=== PATIENT | female | born 2000 | race Caucasian/White ===

== ENCOUNTER 2018-03-18 15:15 | Day surgery (SDC) | payer MEDICAID ==
[2018-03-18 15:59] LABS: BILIRUBIN,URINE NEGATIVE (NEGATIVE); GLUCOSE, URINE (UA) NEGATIVE (NEGATIVE); KETONES,URINE (UA) NEGATIVE (NEGATIVE); LEUKOCYTE ESTERASE, URINE SMALL (NEGATIVE); NITRITE,URINE NEGATIVE (NEGATIVE); OCCULT BLOOD,URINE NEGATIVE (NEGATIVE); PROTEIN,URINE NEGATIVE (NEGATIVE); UROBILINOGEN,URINE 0.2 (NORMAL) E.U./dL (NORMAL)
[2018-03-18 16:00] LABS: HCG UR QUAL NEGATIVE
[2018-03-18 16:01] LABS: CLARITY,URINE CLEAR (CLEAR)
[2018-03-18 16:14] LABS: BACTERIA,URINE None Seen /HPF (None Seen); RBC,URINE None Seen /HPF (0-5); SQUAMOUS EPITHELIAL CELL,UR FEW Squamous (<= Few)
[2018-03-18] MEDS ORDERED: ONDANSETRON 4 MG/2 ML VIAL IVP STA (16:15)
[2018-03-18] MEDS ORDERED: SODIUM CHLORIDE 0.9% 1,000 ML IV ONE (16:15)
[2018-03-18] MEDS ORDERED: MORPHINE 2 MG/ML CARPUJECT IVP STA (16:15)
--- NOTE | 2018-03-18 16:22 | ED Physician Documentation ---
History of Present Illness - Stated complaint Stated Complaint: FEM /AB PX - Chief complaint Chief Complaint: Abd Pain - Additonal information Additional information: hx from pt 17 y/o female LMP about a m ago exact date not known states abrupt onset severe abd pain last night during intercourse fever chills some vag spotting a few days before that Review of Systems Constitutional: reports: Fever, Chills Cardiac: denies: Chest pain / pressure Respiratory: denies: Dyspnea GI: reports: Abdominal Pain, Nausea, Vomiting. denies: Diarrhea : denies: Now EGA Endocrine: denies: Easy bruising / bleeding Immunocompromised: denies: Immunocompromised PD PAST MEDICAL HISTORY - Allergies Allergies/Adverse Reactions: Allergies Allergy/AdvReac Type Severity Reaction Status Date / Time felodipine [From Plendil] Allergy Unknown Verified 03/18/18 15:35 PD ED PE NORMAL - Vitals Vital signs reviewed: Yes - Cardiac Cardiac: RRR - Respiratory Respiratory: No respiratory distress - Abdomen Abdomen: Other (soft but severe TTP with rebound diffusely) - Female Female : Other (was planning on doing after sono but deferred now that sono shows cause ) - Derm Derm: Normal color Results - Vitals Vitals: Vital Signs - 24 hr 03/18/18 03/18/18 15:30 18:56 Temperature 36.2 C L 36.9 C Heart Rate 68 66 Respiratory 16 16 Rate Blood Pressure 132/71 H 117/71 O2 Saturation 98 97 Oxygen O2 Source Room air - Labs Labs: Laboratory Tests 03/18/18 03/18/18 03/18/18 15:53 15:53 16:07 WBC 8.6 RBC 4.36 Hgb 13.6 Hct 40.0 MCV 91.9 MCH 31.2 H MCHC 33.9 RDW 13.5 Plt Count 260 MPV 10.0 Neut # (Auto) 5.4 Lymph # (Auto) 2.3 [place] # (Auto) 0.7 Eos # (Auto) 0.1 Baso # (Auto) 0.1 Absolute Nucleated RBC 0.00 Nucleated RBC % 0.1 Sodium Potassium Chloride Carbon Dioxide Anion Gap BUN Creatinine Estimated GFR (MDRD) Glucose Calcium Total Bilirubin AST ALT Alkaline Phosphatase Total Protein Albumin Globulin Albumin/Globulin Ratio Lipase HCG, Quant Urine Color YELLOW Urine Clarity CLEAR Urine pH 6.0 Ur Specific Chicken 1.025 1.025 Urine Protein NEGATIVE Urine Glucose (UA) NEGATIVE Urine Ketones NEGATIVE Urine Occult Blood NEGATIVE Urine Nitrite NEGATIVE Urine Bilirubin NEGATIVE Urine Urobilinogen 0.2 (NORMAL) Ur Leukocyte Esterase SMALL H Urine RBC None Seen Urine WBC 4-5 Ur Squamous Epith Cells FEW Squamous Urine Bacteria None Seen Ur Microscopic Review INDICATED Urine Culture Comments INDICATED Urine HCG, Qual NEGATIVE 03/18/18 03/18/18 16:07 16:07 WBC RBC Hgb Hct MCV MCH MCHC RDW Plt Count MPV Neut # (Auto) Lymph # (Auto) [place] # (Auto) Eos # (Auto) Baso # (Auto) Absolute Nucleated RBC Nucleated RBC % Sodium 136 Potassium 3.7 Chloride 101 Carbon Dioxide 25 Anion Gap 10.0 BUN 11 Creatinine 0.7 Estimated GFR (MDRD) 108 Glucose 96 Calcium 9.1 Total Bilirubin 0.9 AST 18 ALT 20 Alkaline Phosphatase 63 Total Protein 8.1 Albumin 4.5 Globulin 3.6 Albumin/Globulin Ratio 1.3 Lipase 23 HCG, Quant < 0.60 Urine Color Urine Clarity Urine pH Ur Specific Chicken Urine Protein Urine Glucose (UA) Urine Ketones Urine Occult Blood Urine Nitrite Urine Bilirubin Urine Urobilinogen Ur Leukocyte Esterase Urine RBC Urine WBC Ur Squamous Epith Cells Urine Bacteria Ur Microscopic Review Urine Culture Comments Urine HCG, Qual - Rads (name of study) pelvic sono Radiology: See rad report (large amt free fluid in the cul de sac with internal debris and a complex thick walled cystic lesion R ovary - c/w ruptured R ovarian cyst with hemorrhaging) abd sono Radiology: See rad report (no acute other than pelvic sono findings) PD MEDICAL DECISION MAKING - ED course ED course: ruptured right ovarian cyst with large amt of free intraperitoneal blood VS WNL H/H OK type and screen called ELECTROTHERAPIST at 1930 - she is on OR and will call back turned over to Dr Lambert at 8 PM pending ELECTROTHERAPIST eval pt remains stable and I have updated her
[2018-03-18 16:33] LABS: BASOPHILS # (AUTO) 0.1 10^3/uL (0.0-0.1); BASOPHILS % (AUTO) 0.6 %; EOSINOPHILS # (AUTO) 0.1 10^3/uL (0.0-0.7); EOSINOPHILS % (AUTO) 0.9 %; HGB - HEMOGLOBIN 13.6 g/dL (12.0-16.0); LYMPHOCYTES # (AUTO) 2.3 10^3/uL (1.5-3.5); LYMPHOCYTES % (AUTO) 27.1 %; MEAN CORPUSCULAR HEMOGLOBIN 31.2 pg (27.0-31.0); MEAN CORPUSCULAR HGB CONC 33.9 g/dL (32.0-36.0); MEAN CORPUSCULAR VOLUME 91.9 fL (81.0-99.0); MONOCYTES # (AUTO) 0.7 10^3/uL (0.0-1.0); MONOCYTES % (AUTO) 8.2 %; NEUTROPHILS # (AUTO) 5.4 10^3/uL (1.5-6.6); NEUTROPHILS % (AUTO) 63.2 %; PLT - PLATELET COUNT 260 10^3/uL (130-450); RED BLOOD COUNT 4.36 10^6/uL (4.20-5.40); RED CELL DISTRIBUTION WIDTH 13.5 % (12.0-15.0); WHITE BLOOD COUNT 8.6 x10^3/uL (4.8-10.8)
[2018-03-18 16:43] LABS: ALBUMIN 4.5 g/dL (3.2-5.5); ALBUMIN/GLOBULIN RATIO 1.3 (1.0-2.2); BILIRUBIN,TOTAL 0.9 mg/dL (0.2-1.0); CALCIUM 9.1 mg/dL (8.5-10.3); CREATININE 0.7 mg/dL (0.4-1.0); TOTAL PROTEIN 8.1 g/dL (6.7-8.2)
--- NOTE | 2018-03-18 20:46 | ED Physician Documentation ---
ED Addendum - Addendum Addendum: 03/18/18 20:45 Dr. Riojas came to the emergency room after she got out of her prior surgery. I discussed the history and presentation with her. We reviewed the chart and she did ask for a repeat hemogram. These are ordered. Dr. Simon will see the patient and plans to take her for laparoscopy to control the bleeding of the ruptured cyst.
--- NOTE | 2018-03-18 20:49 | Ultrasound Report ---
Reason: sudden severe pelvic pain peritoneal abd Procedure Date: 03/18/2018 Accession Number: [id number] / [id number] Procedure: US - Abdomen Complete CPT Code: FULL RESULT: EXAM: ABDOMEN ULTRASOUND EXAM DATE: 03/18/2018 06:33 PM. CLINICAL HISTORY: Sudden severe pelvic pain and peritoneal abdominal pain. COMPARISON: None. TECHNIQUE: Real-time scanning was performed with static images obtained. FINDINGS: Liver: Normal in size and echotexture. 18.5 cm. Main portal vein flow: Hepatopetal. Gallbladder: Normal. No stones, wall thickening, or sonographic Cabrera's sign. Biliary System: Common bile duct measures 4.1 mm. No intrahepatic or extrahepatic ductal dilatation. Pancreas: Visualized portion is unremarkable. Kidneys: Right: 11.6 cm longitudinally. Normal. No contour-deforming mass, stones, or hydronephrosis. Left: 12.2 cm longitudinally. Normal. No contour-deforming mass, stones, or hydronephrosis. Spleen: 11.2 x 4.9 x 4.6 cm. Normal in size and echotexture. Aorta and Inferior Vena Cava: Maximum AP diameter of the aorta is 1.6 cm. Normal course and caliber of the imaged portions of the inferior vena cava. Other: None. IMPRESSION: Normal abdomen ultrasound. RADIA
--- NOTE | 2018-03-18 20:50 | Ultrasound Report ---
Reason: sudden severe pelvic pain peritoneal abd Procedure Date: 03/18/2018 Accession Number: [id number] / [id number] Procedure: US - Pelvic w/Transvag+Doppler Comp CPT Code: FULL RESULT: EXAM: PELVIC ULTRASOUND EXAM DATE: 03/18/2018 06:33 PM. CLINICAL HISTORY: Sudden onset severe pelvic pain. COMPARISON: None. TECHNIQUE: Realtime transabdominal pelvic scan performed to identify the uterus and adnexa and as an overview of other pelvic structures, followed by transvaginal scan to provide greater detail of the uterus and adnexa, with static image documentation. FINDINGS: Uterus: 9 x 4.7 x 6.7 cm, volume cc. Anteverted position. Normal overall size and echotexture. Masses: None. Endometrium: 5.7 mm. Normal. Cervix: Unremarkable. Right Ovary: 5.1 x 3.7 x 5.1 cm, volume 50 cc. Complex thick walled cystic lesion measuring 3.5 x 2.3 x 4.1 cm in diameter. Otherwise, normal echotexture and blood flow. Left Ovary: 3.6 x 2.5 x 2.8 cm, volume 13.2 cc. Physiologic ovarian follicles. Normal echotexture and blood flow. Free Fluid: Large amount of free fluid in the cul-de-sac with internal debris. Other: None. IMPRESSION: 1. Large amount of free fluid in the cul-de-sac with internal debris. In association with a complex thick walled cystic lesion involving the right ovary, findings are compatible with a ruptured right ovarian cyst with hemorrhage. 2. The remainder of the transabdominal and transvaginal pelvic sonogram is unremarkable. RADIA
[2018-03-18 21:00] LABS: HGB - HEMOGLOBIN 13.2 g/dL (12.0-16.0); MEAN CORPUSCULAR HGB CONC 33.5 g/dL (32.0-36.0); MEAN CORPUSCULAR VOLUME 92.5 fL (81.0-99.0); MEAN PLATELET VOLUME 9.1 fL (7.9-10.8); RED BLOOD COUNT 4.26 10^6/uL (4.20-5.40); RED CELL DISTRIBUTION WIDTH 13.4 % (12.0-15.0); WHITE BLOOD COUNT 9.1 x10^3/uL (4.8-10.8)
--- NOTE | 2018-03-18 21:40 | ANESTHESIA ---
Pre-Anesthesia VS, & Labs - Diagnosis Abd pain, ovarian cyst - Procedure diagnostic laparoscopy, ovarian cystectomy Vital Signs: Temp Pulse Resp BP Pulse Ox 37 C 80 16 101/83 H 98 03/18/18 20:00 03/18/18 21:11 03/18/18 21:11 03/18/18 21:11 03/18/18 21:11 Height 5 ft 8 in Weight (kg) 81.647 kg Body Mass Index 27.3 - NPO >8 hours - Is Patient ?: No - Lab Results Current Lab Results: Laboratory Tests 03/18/18 20:55: WBC 9.1, RBC 4.26, Hgb 13.2, Hct 39.3, MCV 92.5, MCH 31.0, MCHC 33.5, RDW 13.4, Plt Count 229, MPV 9.1 03/18/18 19:45: Blood Type A POSITIVE, Antibody Screen NEGATIVE 03/18/18 16:07: HCG, Quant < 0.60 03/18/18 16:07: Sodium 136, Potassium 3.7, Chloride 101, Carbon Dioxide 25, Anion Gap 10.0, BUN 11, Creatinine 0.7, Estimated GFR (MDRD) 108, Glucose 96, Calcium 9.1, Total Bilirubin 0.9, AST 18, ALT 20, Alkaline Phosphatase 63, Total Protein 8.1, Albumin 4.5, Globulin 3.6, Albumin/Globulin Ratio 1.3, Lipase 23 03/18/18 16:07: WBC 8.6, RBC 4.36, Hgb 13.6, Hct 40.0, MCV 91.9, MCH 31.2 H, MCHC 33.9, RDW 13.5, Plt Count 260, MPV 10.0, Neut # (Auto) 5.4, Lymph # (Auto) 2.3, [place] # (Auto) 0.7, Eos # (Auto) 0.1, Baso # (Auto) 0.1, Absolute Nucleated RBC 0.00, Nucleated RBC % 0.1 Lab results reviewed: Yes Fish Bones: 03/18/18 20:55 03/18/18 16:07 Home Medications and Allergies Allergies/Adverse Reactions: Allergies Allergy/AdvReac Type Severity Reaction Status Date / Time felodipine [From Plendil] Allergy Unknown Verified 03/18/18 15:35 Anes History & Medical History - Anesthetic History Anesthesia Complications: reports: No previous complications Family history of Anesthesia Complications: Denies Family history of Malignant Hyperthermia: Denies - Medical History Pulmonary: reports: Pneumonia, Other Smoking Status: Current every day smoker Exam General: Alert, Oriented x3, Cooperative Dental: WNL Mouth Opening: Greater than 4 Fingerbreadths Mallampati classification: II Thyromental Distance: greater than 6 cm Respiratory: Lungs clear, Normal breath sounds Cardiovascular: Regular rate Neurological: Normal speech Mental/Cognitive Status: Alert/Oriented X3 Plan Anesthesia Type: General Consent for Procedure(s) Verified and Reviewed: Yes Code Status: Attempt Resuscitation ASA classification: 2-Mild systemic disease Is this case an emergency?: Yes
[2018-03-18] MEDS ORDERED: fentaNYL 100 MCG/2 ML VIAL IVP ONE (21:50)
[2018-03-18] MEDS ORDERED: LIDOCAINE-MPF 2% 5 ML VIAL IM ONE (21:50)
[2018-03-18] MEDS ORDERED: MIDAZOLAM 2 MG/2 ML VIAL IVP ONE (21:50)
[2018-03-18] MEDS ORDERED: ACETAMINOPHEN 1,000 MG/100 ML 100 ML IV ONE (21:50)
[2018-03-18] MEDS ORDERED: DEXAMETHASONE 4 MG/ML VIAL IVP ONE (21:50)
[2018-03-18] MEDS ORDERED: ONDANSETRON 4 MG/2 ML VIAL IVP ONE (21:50)
[2018-03-18] MEDS ORDERED: PROPOFOL 200 MG/20 ML VIAL IVP ONE (21:50)
[2018-03-18] MEDS ORDERED: GLYCOPYRROLATE 1 MG/5 ML VIAL IVP ONE (21:50)
[2018-03-18] MEDS ORDERED: KETOROLAC 30 MG/ML VIAL IVP ONE (21:50)
[2018-03-18] MEDS ORDERED: NEOSTIGMINE 1 MG/1 ML 10 ML MDV IVP ONE (21:50)
[2018-03-18] MEDS ORDERED: BUPIVACAINE 0.5%-EPI 1:200000 PF 30 ML VIAL ONE (21:58)
[2018-03-18] MEDS ORDERED: BUPIVACAINE 0.5%-EPI 1:200000 PF 30 ML VIAL SUBQ ONE (22:31)
[2018-03-18] MEDS ORDERED: LACTATED RINGERS 1,000 ML IV ONE (22:32)
--- NOTE | 2018-03-18 22:46 | OPERATIVE REPORT ---
Operative Report - Other Other Information/Narrative: Date of Operation: 03/18/2018 Surgeon: Lyudmila Sommers DO FACOG Mechanical Technologist: None Fish Hatchery Worker: Fransisco Harmon CRNA Anesthesia: GET Pre-op Dx: 1. 17 yo G0 2. Ruptured right ovarian cyst 3. Hemoperitoneum Post-op Dx: 1. 17 yo G0 2. Ruptured right ovarian cyst 3. Hemoperitoneum Procedure: Diagnostic laparoscopy Findings: Lacerated right ovary with small amount of bleeding. Small amount of blood in the cul-de-sac. Otherwise, normal pelvic anatomy. Normal appendix and liver edge. Some adhesions of colon to left abdominal side wall. Specimens: None Drains: None EBL: 2 mL Complications: None [id number]
[2018-03-18] MEDS ORDERED: HYDROcod/ACETAM 5/325 MG TABLET PO PRN (22:50)
[2018-03-18] MEDS ORDERED: ONDANSETRON 4 MG/2 ML VIAL IVP PRN (22:50)
[2018-03-18] MEDS ORDERED: LORazepam 2 MG/ML VIAL IVP PRN (22:50)
[2018-03-18] MEDS ORDERED: HYDROmorphone 0.5 MG/0.5 ML SYRINGE IVP PRN (22:50)
[2018-03-19 01:04] VITALS: BP 119/67
--- NOTE | 2018-03-19 03:45 | PREOP HISTORY & PHYSICAL ---
DATE OF ADMISSION: 03/18/2018 Physician: Lyudmila Sommers DO FACOG IDENTIFICATION: This is a 17-year-old G0, with LMP of 02/15/2018. HISTORY OF PRESENT ILLNESS: The patient presents to [facility] Emergency Department after having pain with intercourse last night. She and her boyfriend, Gal, were having coitus when she had this excruciating pain. She felt sweating and could not go to the restroom. She had significant nausea, but did not vomit. She had sharp pain that radiated to the lower abdomen. She rated the pain as a 10/10. The patient had taken some ibuprofen and was able to sleep. She woke up later and had another episode of excruciating pain. Because of this pain, she came to the emergency department. Workup has shown that the patient has a large amount of free fluid in the cul-de-sac with internal debris. In addition, the right ovary shows a complex thick-walled cystic lesion measuring 3.5 x 2.3 x 4.1 cm in diameter. Clinically, patient has a ruptured right ovarian cyst. I discussed with her the risks, benefits, alternatives, indications, expectations of both conservative management with watching her overnight and doing serial H and H's. The alternative to that is to perform a diagnostic laparoscopy with possible right ovarian cystectomy. Included in our discussion with the risk of hemorrhage, infection, damage to internal organs, which may include inadvertent laceration, cauterization or ligation of adjacent intestines and ureters or bladder. Furthermore, with the surgery, she may have to have an ovarian cystectomy should the patient experience bleeding that will not stop. After her questions were answered to her satisfaction, she verbalized her desire to proceed with a diagnostic laparoscopy. Consent forms have been signed. The patient has asked me to call her mother, Kayleen, with her operative results. Kayleen's phone number is [phone]. PAST MEDICAL HISTORY: Anxiety and depression. PAST SURGICAL HISTORY: None. ALLERGIES: NO KNOWN DRUG ALLERGIES. MEDICATIONS: None. She does use [facility] in [place], [place]. SOCIAL HISTORY: She does vape tobacco and smokes marijuana as well. She denies any illicit drug use. The patient was in college at some point in time, but now works at the [employer]. She is seeing her boyfriend, Gal Cavanaugh. PAST SURGICAL HISTORY: Nulligravida, but she does desire children in the future. PAST GYNECOLOGICAL HISTORY: She was treated for chlamydia in her manav or senior year of high school. Patient was on control pills in the past, but she is a poor pill taker and had irregular bleeding because of this. She also kind of felt emotional on the pill. She did stop the pill about a year ago. Patient states that she does have a history of dysmenorrhea and menorrhagia. FAMILY HISTORY: Great grandmother had some unknown cancer in her pelvis. REVIEW OF SYSTEMS: Negative unless otherwise stated. She denies any diarrhea, constipation, fevers, chills. PHYSICAL EXAMINATION VITAL SIGNS: Temperature is 36.2, pulse 68, respirations 16, blood pressure 132/71, pulse oximetry 98%. GENERAL: The patient is a well-developed, well-nourished, female, in no apparent distress. She is alert and oriented x3. HEENT: Within normal limits. HEART: Rate is regular. No murmurs, rubs. LUNGS: Lungs are clear to auscultation bilaterally. ABDOMEN: Soft, nontender. There was rebound, but no other peritoneal signs. LABORATORY DATA: White count is 8.6, hemoglobin 13.6, and hematocrit 40.0, platelet count is 260, potassium 3.7, creatinine 0.7, glucose 96. AST 18, ALT 20. Quant is negative. Urinalysis shows only small leukocytes. IMAGING STUDIES: An abdominal ultrasound shows a large amount of free fluid in the cul-de-sac with internal debris in association with a thick-walled cystic lesion involving the right ovary. Findings are compatible with a ruptured right ovarian cyst with hemorrhage. Pelvic ultrasound shows the uterus measures 9 x 4.7 x 6.7 cm anteverted. Endometrium 5.7 mm. Right ovary measures 5.1 x 3.7 x 5.1 cm. Complex thick-walled cystic lesion measuring 3.5 x 2.3 x 4.1 cm, otherwise normal echotexture and blood flow. Left ovary measures 3.6 x 2.5 x 2.8 cm. Physiological ovarian follicles. ASSESSMENT: 1. A 17-year-old G0. 2. Ruptured right ovarian cyst. 3. Hemoperitoneum. PLAN: 1. I discussed with the patient conservative versus surgical management. At this point in time, she would like to proceed with surgery. 2. We will proceed to a diagnostic laparoscopy with possible right ovarian cystectomy. 3. Anticipate giving the patient a prescription of Vicodin for any breakthrough pain that she may experience after surgery. She is to take ibuprofen and Tylenol [id number] and then the Vicodin as needed. 4. I anticipate seeing the patient in two weeks for routine postop visit. TD: 03/18/2018 21:58 [email or web address]
--- NOTE | 2018-03-19 05:42 | OPERATIVE REPORT ---
DATE OF OPERATION: 03/18/2018 PREOPERATIVE DIAGNOSES 1. A 17-year-old G0. 2. Ruptured right ovarian cyst. 3. Hemoperitoneum. POSTOPERATIVE DIAGNOSES 1. A 17-year-old G0. 2. Ruptured right ovarian cyst. 3. Hemoperitoneum. PROCEDURE: Diagnostic laparoscopy. SURGEON: Lyudmila Sommers DO, FACOG STENCIL CUTTER MACHINE: None. INTAKE CLERK: Fransisco Harmon CRNA. ANESTHESIA: General endotracheal tube. FINDINGS: Lacerated right ovary with a small amount of bleeding, small amount of blood in the cul-de-sac. Otherwise normal pelvic anatomy, normal appendix and liver edge. Some adhesions of the colon to the left abdominal sidewall. SPECIMENS: None. DRAINS: None. ESTIMATED BLOOD LOSS: 2 mL COMPLICATIONS: None. BRIEF HISTORY: Patient presented to [facility] Emergency Department with complaints of acute pain after having coitus. Workup showed a complex right ovarian cyst with a large amount of free fluid in the pelvis. I gave patient the options of either conservative management with serial H and H's versus proceeding to a diagnostic laparoscopy with possible ovarian cystectomy. I discussed with patient both risks, benefits, alternatives, and indications and expectations of her options including the risks of surgery; the risks of hemorrhage, infection, damage to surrounding organs which may include but are not limited to an inadvertent laceration, cauterization or ligation of the adjacent intestines, bladder, or ureters. Also, if the surgery should not be able to control bleeding from the ovaries, she may have to undergo an oophorectomy. After all of patient's questions were answered to her satisfaction, she verbalized her desire to proceed with surgery. Consent forms have been signed. OPERATION IN DETAIL: Patient was identified and consented, taken to the operating room, where IV access was then placed. She was then given satisfactory general endotracheal tube anesthesia by Fransisco Harmon after the application of sequential compression devices. Patient was then prepped and draped in normal sterile fashion in The supine position. Timeout was performed which correctly identified the patient, site of procedure, and procedure itself. Three laparoscopic port sites were first identified. The first two were 5 mm in length in the subumbilical fold and in the right lower quadrant 2 fingerbreadths superior and then medial to the anterior superior iliac spine. A third incision site was also made in the left lower quadrant in a similar fashion as a right lower quadrant incision. All 3 sites were injected with a total of 20 mL of 0.25% bupivacaine with epinephrine. Entry into the abdomen was made directly with the Visiport 5 mm trocar. Entrance into the abdomen was made directly, and no trauma to intraabdominal organs was noted. CO2 gas was then used to insufflate the abdomen. Two other port sites were then placed under direct visualization of the camera. Inspection of the pelvis revealed a small amount of blood in the pelvis. I would estimate there was about 5 mL. Closer inspection of the adnexa showed that they were both within normal limits with the exception of the laceration of approximately 1 cm on the right ovary. It had a small amount of bleeding. This bleeding was cauterized with monopolar cautery. At this point in time, the procedure had been completed. All instruments were removed on the abdomen, and CO2 gas was allowed to egress into the atmosphere, thus relieving the pneumoperitoneum. The 3 laparoscopic port sites were then closed with 4-0 Monocryl in subcuticular fashion, and Dermabond was placed on top of the 3 incisions. Patient was taken back to recovery room in stable condition. She will be discharged home later today after postoperative criteria have been met. Patient will be given instruction to take ibuprofen and Tylenol, and then be given a prescription for Vicodin for breakthrough pain she may experience. Patient will see me at [facility] in 2 weeks for a routine postop check. TD: 03/18/2018 22:55 CARL
== END 2018-03-19 01:13 | disposition home or self-care (01) ==
LOC: ED 15:15 → SDS 21:19 → MS2 23:30 → SDS 03-19 01:13
PROVIDERS: ATTEND Obstetrics & Gynecology
PROC: 0W3J4ZZ Control Bleeding in Pelvic Cavity, Percutaneous Endoscopic Approach (ICD-10-PCS; principal; 2018-03-18 22:20)
DX: N83.291 Other ovarian cyst, right side (principal); K66.1 Hemoperitoneum; K66.0 Peritoneal adhesions (postprocedural) (postinfection); F17.290 Nicotine dependence, other tobacco product, uncomplicated
CPT/HCPCS: 36415; 58662; 76700; 76830; 76856; 80053; 81001; 81025; 83690; 84702; 85025; 85027; 86850; 86900; 86901; 87086; 93975; 96361; 96374; 99283; 99284; A9270; J0131; J7120; 81003